=== PATIENT | female | born 1950 | race Caucasian/White ===

== ENCOUNTER 2016-09-28 09:44 | Outpatient (CLI) | payer OTHER ==
--- NOTE | 2016-09-28 11:26 | DIAGNOSTIC IMAGING REPORT ---
PROCEDURE: DEXA BONE DENSITY STUDY CLINICAL INDICATION: SCREENING COMPARISON: None. FINDINGS: LUMBAR SPINE: Bone mineral density 0.665 g/cm2, T score -3.5 osteoporosis LEFT HIP: Bone mineral density 0.688 g/cm2, T score -2.1 osteopenia LEFT FEMORAL NECK: Bone mineral density 0.556 g/cm2, T score -2.6 osteoporosis FRACTURE RISK CALCULATION ( when applicable): 10-year fracture risk of a major osteoporotic fracture and of a hip fracture not reported because some T-score at or below -2.5 (T score greater or equal to -1.0 to: NORMAL) (T score from -1.1 to -2.4: OSTEOPENIA) (T score ess than or equal to -2.5: OSTEOPOROSIS) IMPRESSION: 1. Osteoporosis femoral neck and lumbar spine. Osteopenia left hip.
--- NOTE | 2016-09-28 12:36 | DIAGNOSTIC IMAGING REPORT ---
PROCEDURE: US ART LOWER EXT WITH [place]-B/L INDICATION: Claudication TECHNIQUE: Color Doppler duplex imaging of the lower extremity arterial system was performed bilaterally. Pre and post exercise ABIs were acquired. COMPARISON: None. FINDINGS: RIGHT LOWER EXTREMITY: ABIs: Pre exercise posterior tibial: 1.1. Pre exercise dorsalis pedis: 1.0. Postexercise posterior tibial: 0.96. Postexercise dorsalis pedis: 1.1. VESSELS/ WAVEFORMS: Minor irregular atherosclerotic plaque in the popliteal artery. No other significant calcification. No focal stenosis. Biphasic arterial flow in profunda and superficial femoral artery, triphasic flow in the popliteal and proximal calf arteries, and biphasic flow at the ankle. RIGHT LOWER EXTREMITY PEAK SYSTOLIC VELOCITIES: External iliac: 139 cm/second. Common femoral artery: 87 cm/second. Profunda femoral artery: 47 cm/second. Proximal superficial femoral artery: 52 cm/second. Mid superficial femoral artery: 78 cm/second. Distal superficial femoral artery: 52 cm/second. Popliteal artery: 47 cm/second. Proximal posterior tibial artery: 67 cm/second. Proximal anterior tibial artery: 38 cm/second. Peroneal artery: 14 cm/second. Not well seen. Distal posterior tibial artery: 49 cm/second. Dorsalis pedis artery: 43 cm/second. LEFT LOWER EXTREMITY: ABIs: Pre exercise posterior tibial: 1.2. Pre exercise dorsalis pedis: 1.1. Postexercise posterior tibial: 1.2. Postexercise dorsalis pedis: 0.9. VESSELS/ WAVEFORMS: No significant atherosclerotic calcification or focal stenosis. Biphasic arterial flow throughout the left lower extremity. LEFT LOWER EXTREMITY PEAK SYSTOLIC VELOCITIES: External iliac: 183 cm/second. Common femoral artery: 82 cm/second. Profunda femoral artery: 57 cm/second. Proximal superficial femoral artery: 89 cm/second. Mid superficial femoral artery: 94 cm/second. Distal superficial femoral artery: 42 cm/second. Popliteal artery: 43 cm/second. Proximal posterior tibial artery: 61 cm/second. Proximal anterior tibial artery: 44 cm/second. Peroneal artery: 14 cm/second. Distal posterior tibial artery: 55 cm/second. Dorsalis pedis artery: 29 cm/second. IMPRESSION: 1. Biphasic arterial flow throughout the left lower extremity and distally in the right lower extremity suggestive of atherosclerosis. 2. Given velocities, no implied focal arterial stenosis. 3. Given ABIs, no evidence of resting or exercise-induced arterial insufficiency.
[2016-11-25] MEDS ORDERED: RANITIDINE HCL150 MG PO (11:18)
[2016-11-25] MEDS ORDERED: ACIDOPHILUS PR100 MG PO (11:18)
[2016-11-25] MEDS ORDERED: CALCIUM PO (11:19)
[2016-11-25] MEDS ORDERED: ALENDRONATE SOD70 MG PO (11:19)
[2016-11-25] MEDS ORDERED: [UNRECOGNIZED DRUG - OTHER] PO (11:19)
[2016-11-25] MEDS ORDERED: CITRUCEL FIBER LAXAT PO (11:20)
[2016-11-25] MEDS ORDERED: CLOPIDOGREL75 MG PO (11:21)
[2016-11-25] MEDS ORDERED: FISH OIL TRIP1400 MG PO (11:22)
[2016-11-25] MEDS ORDERED: ZYRTEC ALLERGY10 MG PO (11:29)
[2016-11-25] MEDS ORDERED: LEVOTHYROXINE100 MCG PO (11:29)
[2016-11-25] MEDS ORDERED: MONTELUKAST SOD10 MG PO (11:31)
[2016-11-25] MEDS ORDERED: VITAMIN D-31000 UNIT PO (11:32)
[2016-11-25] MEDS ORDERED: MUCINEX ALLERG180 MG PO (11:32)
[2016-11-25] MEDS ORDERED: PROAIR HFA IN (11:33)
[2016-11-25] MEDS ORDERED: TYLENOL325 MG PO (11:34)
== END 2016-09-28 23:00 ==
LOC: US SRH 09:44
DX: M81.8 Other osteoporosis without current pathological fracture (principal); M85.88 Other specified disorders of bone density and structure, other site; I73.9 Peripheral vascular disease, unspecified

== ENCOUNTER 2016-12-25 08:29 | Outpatient (CLI) | payer OTHER ==
[~2016-12-25 08:29] MED LIST: ACIDOPHILUS PR100 MG PO; ALENDRONATE SOD70 MG PO; CALCIUM PO; CITRUCEL FIBER LAXAT PO; CLOPIDOGREL75 MG PO; FISH OIL TRIP1400 MG PO; LEVOTHYROXINE100 MCG PO; MONTELUKAST SOD10 MG PO; MUCINEX ALLERG180 MG PO; PROAIR HFA IN; RANITIDINE HCL150 MG PO; TYLENOL325 MG PO; VITAMIN D-31000 UNIT PO; ZYRTEC ALLERGY10 MG PO; [UNRECOGNIZED DRUG - OTHER] PO
--- NOTE | 2016-12-25 10:27 | DIAGNOSTIC IMAGING REPORT ---
PROCEDURE: CT ABD/PELVIS WITH CONTRAST CLINICAL INDICATION: ABDOMINAL PAIN TECHNIQUE: 125 ml of Isovue 300 were injected intravenously and axial images were obtained of the entire abdomen and pelvis with sagittal and coronal reformations. COMPARISON: None. FINDINGS: ABDOMEN: Lung bases are clear. Heart size is normal. Cholecystectomy. Liver, pancreas, spleen, adrenal glands and kidneys are unremarkable. Minor atherosclerosis of the aorta. Nonspecific bowel gas pattern. PELVIS: Appendix not visualized but no evidence of acute appendicitis. Minor sigmoid diverticulosis. Retroverted fibroid uterus. Adnexa and bladder are unremarkable. Mild levoscoliosis and degenerative changes of the spine. IMPRESSION: 1. Cholecystectomy 2. Minor sigmoid diverticulosis 3. Fibroid uterus All CT scans at this facility use dose modulation, iterative reconstruction, and/or weight-based dosing when appropriate to reduce radiation dose to as low as reasonably achievable.
== END 2016-12-25 23:00 ==
LOC: CT SRH 08:29
DX: R10.9 Unspecified abdominal pain (principal); K57.30 Diverticulosis of large intestine without perforation or abscess without bleeding; D25.9 Leiomyoma of uterus, unspecified; Z90.49 Acquired absence of other specified parts of digestive tract

== ENCOUNTER 2017-01-07 09:23 | Outpatient (CLI) | payer OTHER ==
--- NOTE | 2017-01-07 10:13 | DIAGNOSTIC IMAGING REPORT ---
PROCEDURE: US COMPLETE PELVIC W/TRANSVAG INDICATION: UTERINE FIBROIDS,PAIN TECHNIQUE: Transabdominal and endovaginal mckeon scale and color Doppler sonographic images of the female pelvis were obtained. COMPARISON: CT abdomen/pelvis 12/25/2016 FINDINGS: TRANSABDOMINAL SCANS: Normal kidneys. TRANSVAGINAL SCANS: Retroverted uterus measures 7.2 x 4.1 x 2 point centimeters. There are fibroid changes in the fundus, largest 1.8 cm. Normal endometrial measures 1.5 mm. Ovaries not visualized, likely secondary to atrophy. No adnexal mass or free fluid the cul-de-sac. IMPRESSION: 1. Fibroid uterus.
== END 2017-01-07 23:00 ==
LOC: US SRH 09:23
DX: D25.9 Leiomyoma of uterus, unspecified (principal)